=== PATIENT | male | born 1950 | race Caucasian/White ===

== ENCOUNTER 2016-08-07 05:29 | Day surgery (SDC) | payer MEDICARE ==
[~2016-08-07] VITALS: Ht 177.8 cm; Wt 96.8 kg
[~2016-08-07 05:29] MED LIST: ASPIRIN E.C. 8181 MG PO; ATIVAN 0.50.5 MG/TAB PO; CELEXA40 MG PO; COUMADIN 6MG6 MG/TAB PO; COZAAR 50MG50 MG/TAB PO; DESYREL 100MG100 MG PO; EFFEXOR 75M75 MG/TAB PO; FERROUS SU325 MG/TAB PO; FLOVENT DI50 MCG/Act IH; FOLIC ACID 40400 MCG PO; LOTENSIN 1010 MG/TAB PO; LOVENOX 100100 MG/ML SQ; PRAVACHOL 40MG40 MG PO; PRILOSEC 20MG20 MG PO; PROCARDIA XL 6060 MG PO; SINGULAIR 110 MG/TAB PO; TYLENOL 8 HR PO; VITAMIN C500 MG PO
[2016-08-07 06:30] VITALS: BP 142/86; PULSE 90; TEMP 98.1
[2016-08-07] MEDS ORDERED: COUMADIN4 MG PO (06:41)
[2016-08-07] MEDS ORDERED: GLUCOTROL10 MG PO (06:44)
[2016-08-07] MEDS ORDERED: GLUCOPHAGE500 MG/TAB PO (06:45)
[2016-08-07] MEDS ORDERED: ZYRTEC ALLERGY10 MG PO (06:46)
[2016-08-07] MEDS ORDERED: ANUCORT RC (06:47)
[2016-08-07] MEDS ORDERED: FLONASEALLERGY NS (06:48)
[2016-08-07] MEDS ORDERED: NORCO 325 MG-51 TAB PO ×2 (07:09→08:35)
[2016-08-07] MEDS ORDERED: LOVENOX 4040 MG/0.4 SQ (07:10)
[2016-08-07 08:24] VITALS: BP 137/76; PULSE 99
[2016-08-07] MEDS ORDERED: ZOFRAN ODT4 MG PO (08:36)
[2016-08-07 08:39] VITALS: BP 138/72; PULSE 82
[2016-08-07 08:54] VITALS: BP 141/64; PULSE 78
== END 2016-08-07 08:24 | disposition home or self-care (01) ==
LOC: SDCO 05:29
DX: C25.9 Malignant neoplasm of pancreas, unspecified (principal); I10 Essential (primary) hypertension; E11.9 Type 2 diabetes mellitus without complications; K21.9 Gastro-esophageal reflux disease without esophagitis; M19.90 Unspecified osteoarthritis, unspecified site; Z86.718 Personal history of other venous thrombosis and embolism; Z96.652 Presence of left artificial knee joint; Z79.899 Other long term (current) drug therapy; Z79.84 Long term (current) use of oral hypoglycemic drugs; Z79.01 Long term (current) use of anticoagulants
CPT/HCPCS: C1788; J0690; J1100; J1644; J1885; J2250; J2405; J2704; J3010; J7030